=== PATIENT | female | born 1975 | race Hispanic/Latino ===

== ENCOUNTER 2023-08-28 09:26 | Emergency (ER) | payer MEDICAID ==
[~2023-08-28] VITALS: Ht 162.6 cm; Wt 106.1 kg
[2023-08-28 09:29] VITALS: BP 129/70; PULSE 70; RESP 18; O2SAT 98
== END 2023-08-28 10:48 | disposition left against medical advice (07) ==
LOC: EDH 09:26
DX: R10.9 Unspecified abdominal pain (principal); Z53.21 Procedure and treatment not carried out due to patient leaving prior to being seen by health care provider
CPT/HCPCS: 99281

== ENCOUNTER 2024-01-14 09:27 | Emergency (ER) | payer MEDICAID ==
[~2024-01-14] VITALS: Ht 162.6 cm; Wt 97.1 kg
[2024-01-14 09:52] LABS: BASOPHILS # (AUTO) 0.06 K/uL (0.00-0.20); EOSINOPHILS # (AUTO) 0.08 K/uL (0.00-0.70); EOSINOPHILS % (AUTO) 1.3 % (0.0-8.0); HEMATOCRIT 42.3 % (36-48); IMMATURE GRANULOCYTE ABSOLUTE 0.02 K/uL (0-1); LYMPHOCYTES # (AUTO) 1.9 K/uL (1.0-4.8); LYMPHOCYTES % (AUTO) 30.9 % (21.0-51.0); MEAN CORPUSCULAR HEMOGLOBIN 28.7 pg (27.0-33.0); MEAN CORPUSCULAR VOLUME 84.3 fL (79-99); MONOCYTES # (AUTO) 0.4 K/uL (0.1-1.0); NEUTROPHILS # (AUTO) 3.6 K/uL (1.8-7.7); NEUTROPHILS % (AUTO) 59.5 % (40.0-77.0); PLATELET COUNT (AUTO) 312 K/uL (130-400); RED BLOOD CELL COUNT(AUTO) 5.02 MIL/uL (4.00-5.50)
[2024-01-14 10:03] LABS: CREATININE 0.7 mg/dL (0.5-1.0); POTASSIUM 4.1 mmol/L (3.5-5.1)
[2024-01-14 10:09] LABS: ALBUMIN 3.8 g/dL (3.5-5.0); TOTAL PROTEIN, SERUM 7.8 g/dL (6.0-8.3)
[2024-01-14] MEDS ORDERED: IOHEXOL 350 MG/ML 100ML INFUS..BTL IV ONE (11:03)
[2024-01-14] MEDS: PANTOPRAZOLE 40 MG/VIAL IVP ONE (12:02)
[2024-01-14] MEDS: HYOSCYAMINE SULFATE 0.125 MG TAB.SUBL SL ONE (12:02)
[2024-01-14] MEDS ORDERED: FAMO-136 PO (13:19)
[2024-01-14] MEDS ORDERED: ONDA4TAB10 PO (13:19)
[2024-01-14] MEDS ORDERED: SUCR1TAB28 PO (13:19)
[2024-01-14 13:40] VITALS: BP 122/67; PULSE 70; RESP 18; O2SAT 98
== END 2024-01-14 13:42 | disposition home or self-care (01) ==
LOC: EDH 09:27
DX: R10.10 Upper abdominal pain, unspecified (principal); R63.4 Abnormal weight loss; I10 Essential (primary) hypertension; E11.9 Type 2 diabetes mellitus without complications; Z90.49 Acquired absence of other specified parts of digestive tract
CPT/HCPCS: 99285; 74177; 96374; 71045; 80053; 83690; 85025; 81025; 36415; 93005; Q9967; S0164; C9113